=== PATIENT | male | born 1940 | race Caucasian/White ===

== ENCOUNTER 2020-09-05 16:53 | Inpatient (IN) ==
[2020-09-05 17:43] LABS: Basophils # 0.1 10*3/uL (0.0-0.2); Basophils % 0.5 % (0.0-0.8); Eosinophils # 0.1 10*3/uL (0.0-0.87); Eosinophils % 0.7 % (0.00-10.9); Hematocrit 45.2 VOL% (42.0-52.0); Hemoglobin 14.6 GM/DL (14.0-18.0); Immature Granulocytes % 0.9 %; Immature Granulocytes Absolute 0.12 #; Lymphocytes # 1.5 10*3/uL (1.4-4.0); Lymphocytes % 11.4 % (21.2-54.2); Mean Corpuscular HGB Conc 32.3 GM/DL (32-36); Mean Corpuscular Volume 97.8 FL (87-102); Mean Platelet Volume 9.4 FL (9.6-12.0); Monocytes % 8.2 % (1.7-12.7); Neutrophils % 78.3 % (38.7-73.9); Platelet Count 209 T/CUMM (130-400); Red Blood Count 4.62 MC/CUMM (3.8-5.5); Red Cell Distribution Width 14.8 % (9.3-17.3); White Blood Count 13.1 T/CUMM (4-12)
[2020-09-05] MEDS ORDERED: MORPHINE 2 MG/1 ML SYRINGE ONE (17:48)
[2020-09-05] MEDS ORDERED: MORPHINE 2 MG/1 ML SYRINGE IV STA (17:50)
[2020-09-05 17:52] LABS: PT Patient Result 10.7 SECS (10.5-12.0)
[2020-09-05 17:56] LABS: Calcium 8.1 MG/DL (8.5-10.1); Osmolality,Calculated 284.3 MOS/KG (273-304); Potassium 3.3 MMOL/L (3.5-5.1)
[2020-09-05] MEDS ORDERED: MORPHINE 2 MG/1 ML SYRINGE IV PRN (19:26)
[2020-09-05] MEDS ORDERED: ACETAMINOPHEN 325 MG TABLET PO PRN (19:26)
[2020-09-05] MEDS ORDERED: ONDANSETRON 4 MG/2 ML VIAL IV PRN (19:26)
[2020-09-05] MEDS ORDERED: DEXTROSE 50% 25 GM/50 ML VIAL IV PRN ×2 (19:26)
[2020-09-05] MEDS ORDERED: GLUCAGON 1 MG VIAL IM PRN ×2 (19:26)
[2020-09-05] MEDS: LACTATED RINGERS 1,000 ML IV SCH (22:17)
[2020-09-05] MEDS: LORazepam 1 MG TABLET PO SCH (22:18)
[2020-09-05] MEDS: ATORVASTATIN 40 MG TABLET PO SCH (22:18)
[2020-09-05] MEDS: MAGNESIUM OXIDE 400 MG TABLET PO SCH (22:18)
[2020-09-05] MEDS: POTASSIUM CHLORIDE 20 MEQ TABLET PO SCH (22:18)
[2020-09-05] MEDS: COENZYME Q10 100 MG CAPSULE PO SCH (22:18)
[2020-09-05] MEDS: ASPIRIN EC 81 MG TABLET PO SCH (22:18)
[2020-09-05] MEDS: INSULIN LISPRO 100 UNIT/ML SUBCUT SCH (22:19)
[2020-09-06 05:01] LABS: Basophils # 0.1 10*3/uL (0.0-0.2); Basophils % 0.6 % (0.0-0.8); Eosinophils # 0.1 10*3/uL (0.0-0.87); Eosinophils % 0.9 % (0.00-10.9); Hematocrit 46.1 VOL% (42.0-52.0); Immature Granulocytes % 0.6 %; Immature Granulocytes Absolute 0.08 #; Lymphocytes # 1.5 10*3/uL (1.4-4.0); Lymphocytes % 11.6 % (21.2-54.2); Mean Corpuscular HGB Conc 32.5 GM/DL (32-36); Mean Corpuscular Volume 98.5 FL (87-102); Mean Platelet Volume 9.8 FL (9.6-12.0); Monocytes % 10.6 % (1.7-12.7); Neutrophils % 75.7 % (38.7-73.9); Platelet Count 208 T/CUMM (130-400); Red Blood Count 4.68 MC/CUMM (3.8-5.5); Red Cell Distribution Width 15.1 % (9.3-17.3); White Blood Count 12.7 T/CUMM (4-12)
[2020-09-06 05:25] LABS: Calcium 8.4 MG/DL (8.5-10.1); Potassium 4.1 MMOL/L (3.5-5.1)
[2020-09-06] MEDS: POTASSIUM CHLORIDE 20 MEQ TABLET PO SCH ×3 (08:03→22:04)
[2020-09-06] MEDS: INSULIN LISPRO 100 UNIT/ML SUBCUT SCH ×4 (08:13→22:02)
[2020-09-06] MEDS: LACTATED RINGERS 1,000 ML IV SCH ×3 (09:23→18:59)
[2020-09-06] MEDS ORDERED: LIDOCAINE 1% 5 ML VIAL ONE (09:35)
[2020-09-06] MEDS ORDERED: ROPIVACAINE 0.5% 30 ML VIAL ONE (09:35)
[2020-09-06] MEDS ORDERED: DEXAMETHASONE 4 MG/1 ML VIAL ONE (09:35)
[2020-09-06] MEDS ORDERED: fentaNYL 100 MCG/2 ML VIAL ONE ×2 (10:07→11:29)
[2020-09-06] MEDS ORDERED: BUPIVACAINE SPINAL 0.75% 2 ML AMP SPINAL ONE (10:28)
[2020-09-06] MEDS ORDERED: propofoL 200 MG/20 ML VIAL IV ONE ×2 (10:35)
[2020-09-06] MEDS ORDERED: PHENYLEPHRINE DRIP 20 MG/250 ML PREMIX IV ONE (10:39)
[2020-09-06] MEDS ORDERED: BACITRACIN OINT 0.9 GM PACK TOP ONE (10:41)
[2020-09-06] MEDS ORDERED: LIDOCAINE 2% 5 ML VIAL ONE (11:28)
[2020-09-06] MEDS ORDERED: ETOMIDATE 40 MG/20 ML VIAL IV ONE (11:28)
[2020-09-06] MEDS ORDERED: SEVOFLURANE 1 UNIT/15 MINUTE INH ONE ×6 (11:28→11:51)
[2020-09-06] MEDS ORDERED: KETAMINE 500 MG/10 ML VIAL ONE (11:32)
[2020-09-06] MEDS ORDERED: ceFAZolin 1,000 MG VIAL ONE (11:43)
[2020-09-06] MEDS ORDERED: KETOROLAC 30 MG/1 ML VIAL ONE ×3 (11:45→12:42)
[2020-09-06] MEDS ORDERED: ACETAMINOPHEN INJ 1,000 MG/100 ML VIAL IV ONE (11:45)
[2020-09-06] MEDS ORDERED: PHENYLEPHRINE 1 MG/10 ML SYRINGE IV ONE (12:01)
[2020-09-06] MEDS ORDERED: MAGNESIUM HYDROXIDE SUSP 30 ML UDCUP PO PRN (12:10)
[2020-09-06] MEDS: KETOROLAC 15 MG/1 ML VIAL IV SCH ×2 (12:43→20:00)
[2020-09-06] MEDS: FUROSEMIDE 40 MG TABLET PO SCH (16:56)
[2020-09-06] MEDS: PANTOPRAZOLE 40 MG TABLET PO SCH (16:57)
[2020-09-06] MEDS: predniSONE 20 MG TABLET PO SCH (16:57)
[2020-09-06] MEDS: METOPROLOL SUCCINATE XL 25 MG TABLET PO SCH (16:58)
[2020-09-06] MEDS: allopurinoL 300 MG TABLET PO SCH (16:58)
[2020-09-06] MEDS: EZETIMIBE 10 MG TABLET PO SCH (16:58)
[2020-09-06] MEDS: ASCORBIC ACID 500 MG TABLET PO SCH (16:58)
[2020-09-06] MEDS ORDERED: TUBERCULIN SKIN TEST 0.1 ML SYRINGE INTRADERM ONE (19:13)
[2020-09-06] MEDS: LORazepam 1 MG TABLET PO SCH (22:04)
[2020-09-06] MEDS: ASPIRIN EC 81 MG TABLET PO SCH (22:04)
[2020-09-06] MEDS: COENZYME Q10 100 MG CAPSULE PO SCH (22:04)
[2020-09-06] MEDS: ATORVASTATIN 40 MG TABLET PO SCH (22:04)
[2020-09-06] MEDS: MAGNESIUM OXIDE 400 MG TABLET PO SCH (22:04)
[2020-09-06] MEDS: DOCUSATE SODIUM 100 MG CAPSULE PO SCH (22:05)
[2020-09-07] MEDS: LACTATED RINGERS 1,000 ML IV SCH (01:18)
[2020-09-07] MEDS: KETOROLAC 15 MG/1 ML VIAL IV SCH (02:10)
[2020-09-07] MEDS ORDERED: KETOROLAC 15 MG/1 ML VIAL IV SCH (02:30)
[2020-09-07 04:55] LABS: Basophils % 0.1 % (0.0-0.8); Hematocrit 36.5 VOL% (42.0-52.0); Hemoglobin 11.9 GM/DL (14.0-18.0); Immature Granulocytes % 0.3 %; Immature Granulocytes Absolute 0.04 #; Lymphocytes # 0.6 10*3/uL (1.4-4.0); Lymphocytes % 4.8 % (21.2-54.2); Mean Corpuscular HGB Conc 32.6 GM/DL (32-36); Mean Corpuscular Volume 97.9 FL (87-102); Mean Platelet Volume 9.9 FL (9.6-12.0); Monocytes % 6.5 % (1.7-12.7); Neutrophils % 88.3 % (38.7-73.9); Platelet Count 141 T/CUMM (130-400); Red Blood Count 3.73 MC/CUMM (3.8-5.5); Red Cell Distribution Width 14.6 % (9.3-17.3); White Blood Count 11.5 T/CUMM (4-12)
[2020-09-07 05:30] LABS: Potassium 4.4 MMOL/L (3.5-5.1)
[2020-09-07 05:57] LABS: Band Neutrophils 1 % (0-10); Lymphocytes 6 % (20-55); Segmented Neutrophils 90 % (50-85); Total Cells Counted 100
[2020-09-07 05:58] LABS: Microcytosis 1+; Ovalocytes Slight; Platelet Estimate Adequate
[2020-09-07] MEDS ORDERED: FONDAPARINUX 2.5 MG/0.5 ML SYRINGE SUBCUT SCH (06:30)
[2020-09-07] MEDS: INSULIN LISPRO 100 UNIT/ML SUBCUT SCH ×3 (07:48→16:21)
[2020-09-07] MEDS: allopurinoL 300 MG TABLET PO SCH (08:30)
[2020-09-07] MEDS: DOCUSATE SODIUM 100 MG CAPSULE PO SCH (08:30)
[2020-09-07] MEDS: PANTOPRAZOLE 40 MG TABLET PO SCH (08:30)
[2020-09-07] MEDS: EZETIMIBE 10 MG TABLET PO SCH (08:30)
[2020-09-07] MEDS: METOPROLOL SUCCINATE XL 25 MG TABLET PO SCH (08:30)
[2020-09-07] MEDS: predniSONE 20 MG TABLET PO SCH (08:30)
[2020-09-07] MEDS: FUROSEMIDE 40 MG TABLET PO SCH (08:30)
[2020-09-07] MEDS: ASCORBIC ACID 500 MG TABLET PO SCH (08:30)
[2020-09-07] MEDS: POTASSIUM CHLORIDE 20 MEQ TABLET PO SCH ×2 (08:30→11:22)
[2020-09-07 11:02] VITALS: BP 108/93
== END 2020-09-07 16:56 | disposition home health service (06) | DRG 482 ==
LOC: EDBD → EDUNIT# → N.ED 16:53 → N.EDINP 19:27 → N.3E 20:16
PROVIDERS: ADMIT Internal Medicine; ATTEND Internal Medicine